=== PATIENT | male | born 1975 | race Caucasian/White ===

== ENCOUNTER 2017-12-23 09:34 | Emergency (ER) | payer OTHER ==
[2017-12-23] MEDS ORDERED: LIDOCAINE 1% INJ-PF (10 MG/ML) 30 ML SDV INJ ONE (10:14)
--- NOTE | 2017-12-23 10:20 | ER Document Report ---
ED Extremity Problem, Lower - General Chief Complaint: Laceration Stated Complaint: WORK RELATED/LEG INJURY Time Seen by Provider: 12/23/17 10:03 Mode of Arrival: Ambulatory Information source: Patient Notes: 42-year-old male presents to ED for complaint of laceration to the left leg. He states it happened at work. There is no bleeding at this time. He states he is unsure when he got his last tetanus shot. He is alert oriented pupils equal and react to light speaking in full even sentences able to walk with a even steady gait and respirations even and unlabored. TRAVEL OUTSIDE OF THE [place] IN LAST 30 DAYS: No - HPI Patient complains to provider of: Injury, Pain Location: Leg Occurred: Just prior to arrival Where: Work Onset/Duration: Sudden Quality of pain: Sharp Severity: Mild Pain Level: 1 Recent injury: Yes Associated symptoms: Painful ambulation Exacerbated by: Nothing Relieved by: Nothing - Related Data Allergies/Adverse Reactions: No Known Allergies Allergy (Verified 12/23/17 09:35) Past Medical History - General Information source: Patient - Social History Smoking Status: Never Smoker Cigarette use (# per day): No Chew tobacco use (# tins/day): No Smoking Education Provided: No Frequency of alcohol use: Rare Drug Abuse: None Occupation: [employer] Lives with: Family Family History: Arthritis, DM, Other - Bipolar and schizophrenia Patient has suicidal ideation: No Patient has homicidal ideation: No - Past Medical History Cardiac Medical History: Reports: None Pulmonary Medical History: Reports: None EENT Medical History: Reports: None Neurological Medical History: Reports: None Endocrine Medical History: Reports: None Renal/ Medical History: Reports: None Malignancy Medical History: Reports None GI Medical History: Reports: None Musculoskeltal Medical History: Reports Hx Musculoskeletal Deformity - At Skin Medical History: Reports None Psychiatric Medical History: Reports: None Traumatic Medical History: Reports: None Infectious Medical History: Reports: None Past Surgical History: Reports: Hx Orthopedic Surgery - right hip surgery - Immunizations Immunizations up to date: Yes Hx Diphtheria, Pertussis, Tetanus Vaccination: Yes - 12/23/2017 Review of Systems - Review of Systems Constitutional: No symptoms reported EENT: No symptoms reported Cardiovascular: No symptoms reported Respiratory: No symptoms reported Gastrointestinal: No symptoms reported Genitourinary: No symptoms reported Male Genitourinary: No symptoms reported Musculoskeletal: No symptoms reported Skin: Other - Laceration to left leg Hematologic/Lymphatic: No symptoms reported Neurological/Psychological: No symptoms reported -: Yes All other systems reviewed and negative Physical Exam - Vital signs Vitals: Temp Pulse Resp BP Pulse Ox 98.6 F 82 16 135/84 H 96 12/23/17 09:37 12/23/17 09:37 12/23/17 09:37 12/23/17 09:37 12/23/17 09:37 Interpretation: Normal - General General appearance: Appears well, Alert - HEENT Head: Normocephalic, Atraumatic Eyes: Normal Pupils: PERRL - Respiratory Respiratory status: No respiratory distress Chest status: Nontender Breath sounds: Normal Chest palpation: Normal - Cardiovascular Rhythm: Regular Heart sounds: Normal auscultation Murmur: No - Abdominal Inspection: Normal Distension: No distension Bowel sounds: Normal Tenderness: Nontender Organomegaly: No organomegaly - Back Back: Normal, Nontender - Extremities General upper extremity: Normal inspection, Nontender, Normal color, Normal ROM , Normal temperature General lower extremity: Normal inspection, Nontender, Normal color, Normal ROM , Normal temperature, Normal weight bearing. No: Brennen's sign - Neurological Neuro grossly intact: Yes Cognition: Normal Orientation: AAOx4 [place] Coma Scale Eye Opening: Spontaneous Link Coma Scale Verbal: Oriented [place] Coma Scale Motor: Obeys Commands Link Coma Scale Total: 15 Speech: Normal Motor strength normal: LUE, RUE, LLE, RLE Sensory: Normal - Psychological Associated symptoms: Normal affect, Normal mood - Skin Skin Temperature: Warm Skin Moisture: Dry Skin Color: Normal Skin irregularity: Laceration Location of irregularity: Extremities - Left leg Course - Vital Signs Vital signs: Temp Pulse Resp BP Pulse Ox 98.7 F 78 16 138/78 H 98 12/23/17 11:36 12/23/17 11:36 12/23/17 11:36 12/23/17 11:36 12/23/17 11:36 Procedures - Laceration/Wound Repair Left Groin Time completed: 11:21 Wound length (cm): 1.2 Wound's Depth, Shape: Superficial, Linear Laceration pre-procedure: Sterile PPE donned, Sterile drapes applied, Shur- Clens applied Anesthetic type: 1% Lidocaine Volume Anesthetic (mLs): 5 Wound explored: Contaminated Irrigated w/ Saline (mLs): 400 Wound Repaired With: Sutures Suture Size/Type: 4:0, Ethilon Number of Sutures: 3 Layer Closure?: No Post-procedure wound care: Sterile dressing applied Post-procedure NV exam normal: Yes Discharge - Discharge Clinical Impression: Laceration of left thigh Qualifiers: Encounter type: initial encounter Qualified Code(s): S71.112A - Laceration without foreign body, left thigh, initial encounter Condition: Stable Disposition: HOME, SELF-CARE Instructions: Family Physicians / Practices Additional Instructions: LACERATION CARE: Your laceration has been sutured to keep the skin edges aligned during healing. The time of suture removal depends on the nature and location of your cut. Please follow the care instructions the doctor has outlined for you and return for further care, according to the schedule you've been given. Keep the wound and dressing clean. Unless you were told otherwise, you may shower daily, blotting the wound dry with a clean, unused towel. At other times, If the dressing gets wet or blood soaked, remove it and blot the wound dry, then reapply a new dressing. Unless you were instructed otherwise, dressings should be changed at least daily. If any signs of infection occur (swelling, redness, drainage, increasing tenderness, red streaks, tender lumps in the armpit or groin above the laceration, or fever), see the doctor immediately. SOAP CLEANSING: Gently wash the wound daily using a mild soap (like Ivory, Phisoderm, Neutrogena). Use warm water, rubbing gently until all debris, ooze, and crusting have been washed from the wound. Allow to dry briefly (about 10 minutes) after cleaning. Repeat this cleansing at least three times a day for the first two days and then once or twice a day. ANTIBIOTIC OINTMENT PROTECTION: Your wounds are such that dressing them is not practical or optional. After cleansing, you should apply a thin coating of antibiotic ointment ( Bacitracin, not Neosporin) to the wounds at least three times daily. This lessens infection risk, and may decrease the amount of scarring. Use a q-tip or dull butter knife, not your finger, to apply this ointment. Any debris or ooze which builds up in the ointment should be gently rubbed off with a sterile gauze pad. Harder crusting may need to be gently scrubbed off with a clean wash cloth with soap and warm water, perhaps applying a warm, wet wash cloth to the wound for ten minutes first. Development of redness, severe itching, or blistering may mean allergy to the ointment. See the doctor. TETANUS IMMUNIZATION GIVEN: You have been given an immunization against tetanus. Please record this in your records. In general, a booster is needed only once every 10 years. The tetanus shot protects against tetanus or "lockjaw," which is a complication of certain wound infections (the tetanus shot cannot protect against the actual infection). The immunization site may become warm and red due to local reaction. If this occurs, apply warm compresses and take aspirin or ibuprofen to reduce inflammation and discomfort. Return for evaluation if the reaction becomes severe. FOLLOW-UP CARE: Please return in __3___ days for an infection check and dressing change. Your sutures should be removed in __9___ days. To facilitate a timely removal of your sutures, you may return to the Emergency Department at [facility]. You do not need to call for an appointment, but the best time to come in for suture removal is early in the morning. If you have been referred to another physician for follow-up care, call that physicians office for an appointment as you were instructed. If you experience a significant change in your laceration, or if you are concerned there may be an infection (swelling, redness, drainage, increasing tenderness, red streaks, tender lumps in the armpit or groin above the laceration, or fever) , return to the Emergency Department immediately re-evaluation. Forms: Elevated Blood Pressure, Return to Work
[2017-12-23] MEDS ORDERED: DIPH/PERTUSS(ACELL)/TETANUS VAC/PF 0.5 ML SYR (>=10YO) IM ONE (10:21)
[2017-12-23 18:12] VITALS: BP 138/78
== END 2017-12-23 11:38 | disposition home or self-care (01) ==
LOC: ER 09:34
PROC: 0HQJXZZ Repair Left Upper Leg Skin, External Approach (ICD-10-PCS; principal; 2017-12-23)
DX: S71.112A Laceration without foreign body, left thigh, initial encounter (principal); X58.XXXA Exposure to other specified factors, initial encounter; Y99.0 Civilian activity done for income or pay
CPT/HCPCS: 99282; 90471; 90715; 12001; J3490

== ENCOUNTER 2018-11-21 14:35 | Emergency (ER) | payer SELFPAY ==
--- NOTE | 2018-11-21 15:35 | ER Document Report ---
ED Medical Screen (RME) - General Chief Complaint: Facial Swelling Stated Complaint: FACE INJURY Time Seen by Provider: 11/21/18 15:33 Mode of Arrival: Ambulatory Information source: Patient Notes: 43-year-old male presented to ED with facial swelling to the right side of his face. He has no pain at all. noticed it yesterday at 1430 and it has increased in swelling today. There is no dental cavity no abscesses no source for the swelling that I can see. I will get lab work and have him reevaluated by 1 of the providers. I have greeted and performed a rapid initial assessment of this patient. A comprehensive ED assessment and evaluation of the patient, analysis of test results and completion of medical decision making process will be conducted by an additional ED providers. TRAVEL OUTSIDE OF THE [place] IN LAST 30 DAYS: No - Related Data Allergies/Adverse Reactions: No Known Allergies Allergy (Verified 11/21/18 14:40) Past Medical History Renal/ Medical History: Denies: Hx Peritoneal Dialysis Musculoskeltal Medical History: Reports Hx Musculoskeletal Deformity - At Past Surgical History: Reports: Hx Orthopedic Surgery - right hip surgery - Immunizations Immunizations up to date: Yes Hx Diphtheria, Pertussis, Tetanus Vaccination: Yes - 12/23/2017 Physical Exam - Vital signs Vitals: Temp Pulse Resp BP Pulse Ox 98.4 F 73 14 153/90 H 96 11/21/18 14:51 11/21/18 14:51 11/21/18 14:51 11/21/18 14:51 11/21/18 14:51 Course - Vital Signs Vital signs: Temp Pulse Resp BP Pulse Ox 98.4 F 73 14 153/90 H 96 11/21/18 14:51 11/21/18 14:51 11/21/18 14:51 11/21/18 14:51 11/21/18 14:51
[2018-11-21 16:25] LABS: ABSOLUTE BASOPHILS # (AUTO) 0.1 10^3/uL (0.0-0.2); ABSOLUTE EOSINOPHILS # (AUTO) 0.1 10^3/uL (0.0-0.6); ABSOLUTE LYMPHOCYTES (AUTO) 1.6 10^3/uL (0.5-4.7); ABSOLUTE MONOCYTES (AUTO) 0.6 10^3/uL (0.1-1.4); ABSOLUTE NEUT (AUTO) 7.8 10^3/uL (1.7-8.2); BASOPHILS % (AUTO) 0.5 % (0-2); EOSINOPHILS % (AUTO) 1.2 % (0-6); HEMOGLOBIN 14.6 g/dL (13.5-17.0); LYMPHOCYTES % (AUTO) 15.3 % (13-45); MEAN CORPUSCULAR HEMOGLOBIN 27.8 pg (27.0-33.4); MEAN CORPUSCULAR HGB CONC 33.9 g/dL (32.0-36.0); MEAN CORPUSCULAR VOLUME 82 fl (80-97); MONOCYTES % (AUTO) 6.2 % (3-13); PLATELET COUNT 217 10^3/uL (150-450); RED BLOOD COUNT 5.24 10^6/uL (4.35-5.55); SEGMENTED NEUTROPHILS % (AUTO) 76.8 % (42-78); TOTAL CELLS COUNTED % (AUTO) 100 %; WHITE BLOOD COUNT 10.2 10^3/uL (4.0-10.5)
[2018-11-21 16:46] LABS: ALANINE AMINOTRANSFERASE 25 U/L (21-72); ALBUMIN 4.6 g/dL (3.5-5.0); ALKALINE PHOSPHATASE 85 U/L (38-126); ANION GAP 7 (5-19); ASPARTATE AMINO TRANSFERASE 18 U/L (17-59); BILIRUBIN,DIRECT 0.2 mg/dL (0.0-0.4); BILIRUBIN,TOTAL 0.6 mg/dL (0.2-1.3); BLOOD UREA NITROGEN 17 mg/dL (7-20); C-REACTIVE PROTEIN 31.2 mg/L (<10.0); CALCIUM 10.5 mg/dL (8.4-10.2); CARBON DIOXIDE 29 mmol/L (22-30); CHLORIDE 102 mmol/L (98-107); GLUCOSE 91 mg/dL (75-110); POTASSIUM 4.7 mmol/L (3.6-5.0); SODIUM 138.3 mmol/L (137-145); TOTAL PROTEIN 7.7 g/dL (6.3-8.2)
[2018-11-21 17:10] LABS: ERYTHROCYTE SEDIMENTATION RATE 11 mm/hr (0-15)
--- NOTE | 2018-11-21 18:41 | ER Document Report ---
Addendum entered and electronically signed by JUAN ANTONIO ROJO NP 11/24/18 10:11: Course - Re-evaluation Re-evalutation: 11/24/18 10:11 [facility] pharmacy called to confirm prescription directions for the Percocet, advised to give 1 tablet every 6 as needed for pain. - Vital Signs Vital signs: Temp Pulse Resp BP Pulse Ox 98.5 F 76 20 145/76 H 98 11/21/18 22:43 11/21/18 22:43 11/21/18 22:43 11/21/18 22:43 11/21/18 22:43 - Laboratory Result Diagrams: 11/21/18 16:02 11/21/18 16:02 Laboratory results interpreted by me: 11/21/18 16:02 Calcium 10.5 H C-Reactive Protein 31.2 H Original Note: ED General - General Mode of Arrival: Ambulatory TRAVEL OUTSIDE OF THE [place] IN LAST 30 DAYS: No <GAYLA AJ - Last Filed: 11/21/18 18:21> <FELY HUYNH - Last Filed: 11/21/18 22:13> - General Chief Complaint: Facial Swelling Stated Complaint: FACE INJURY Time Seen by Provider: 11/21/18 15:33 Notes: 43-year-old male with no past medical history presents to the emergency department for right-sided facial swelling times 24 hours. His noted it last night after he got back from work and it got acutely worse today prompting them to get seen. His eye is swollen. He denies any vision changes. Denies headache or any pain at all. Denies any airway compromise, dysphagia, shortness of breath, chest pain. Denies any nausea or vomiting. Denies any neck stiffness. No other complaints. (GAYLA AJ) - Related Data Allergies/Adverse Reactions: No Known Allergies Allergy (Verified 11/21/18 14:40) Past Medical History - General Information source: Patient - Social History Smoking Status: Never Smoker Family History: Arthritis, DM, Other - Bipolar and schizophrenia Patient has suicidal ideation: No Patient has homicidal ideation: No Renal/ Medical History: Denies: Hx Peritoneal Dialysis Musculoskeletal Medical History: Reports Hx Musculoskeletal Deformity - At Past Surgical History: Reports: Hx Orthopedic Surgery - right hip surgery - Immunizations Immunizations up to date: Yes Hx Diphtheria, Pertussis, Tetanus Vaccination: Yes - 12/23/2017 <GAYLA AJ - Last Filed: 11/21/18 18:21> Review of Systems - Review of Systems Constitutional: See HPI EENT: See HPI Cardiovascular: See HPI Respiratory: See HPI Gastrointestinal: See HPI Genitourinary: No symptoms reported Male Genitourinary: No symptoms reported Musculoskeletal: No symptoms reported Skin: No symptoms reported Hematologic/Lymphatic: No symptoms reported Neurological/Psychological: No symptoms reported <GAYLA AJ - Last Filed: 11/21/18 18:21> Physical Exam <GAYLA AJ - Last Filed: 11/21/18 18:21> - Vital signs Vitals: Temp Pulse Resp BP Pulse Ox 98.4 F 73 14 153/90 H 96 11/21/18 14:51 11/21/18 14:51 11/21/18 14:51 11/21/18 14:51 11/21/18 14:51 - Notes Notes: PHYSICAL EXAMINATION: Reviewed vital signs and charting by RN GENERAL: Alert, interacts well. No acute distress. HEAD: Normocephalic, atraumatic. EYES: Pupils equal and round. Extraocular movements intact. ENT: Oral mucosa moist, tongue midline. NECK: Full range of motion. Supple. Trachea midline. LUNGS: Clear to auscultation bilaterally, no wheezes, rales, or rhonchi. No respiratory distress. HEART: Regular rate and rhythm. No murmur NEUROLOGIC: Oriented and appropriate. Normal speech. PSYCH: Normal affect, normal mood. SKIN: Prominent soft tissue swelling right side of patient's face infraorbital to jaw. Mild ecchymosis infraorbital. On inspection patient has poor dentition with purulence coming from both upper and lower teeth (GAYLA AJ) Course - Laboratory Result Diagrams: 11/21/18 16:02 11/21/18 16:02 <GAYLA AJ - Last Filed: 11/21/18 18:21> - Laboratory Result Diagrams: 11/21/18 16:02 11/21/18 16:02 <FELY HUYNH - Last Filed: 11/21/18 22:13> - Re-evaluation Re-evalutation: 11/21/18 18:42 Prominent facial swelling right side. CT facial ordered with contrast to ensure no facial cellulitis is present. (GAYLA AJ) 11/21/18 21:37 This Louie Huynh physician catering administrative assistant I took over patient care for daytime mid- level Pola and was told her we are waiting on a CT of the face for confirmation o f a possible abscess. Patient's CT returned does show a 9 mm abscess around the first permanent molar although does not appear to be an area where we can reach for an I&D. At this point we will send patient home on antibiotic close follow- up. Patient is in agreement with this plan. (FELY HUYNH) - Vital Signs Vital signs: Temp Pulse Resp BP Pulse Ox 98.4 F 73 14 153/90 H 96 11/21/18 14:51 11/21/18 14:51 11/21/18 14:51 11/21/18 14:51 11/21/18 14:51 - Laboratory Laboratory results interpreted by me: 11/21/18 16:02 Calcium 10.5 H C-Reactive Protein 31.2 H Discharge <GAYLA AJ - Last Filed: 11/21/18 18:21> <FELY HUYNH - Last Filed: 11/21/18 22:13> - Discharge Clinical Impression: Dental abscess Condition: Good Disposition: HOME, SELF-CARE Instructions: Abscess ([facility]), Cephalexin ([facility]), Oral Narcotic Medication ([facility]), Clindamycin ([facility]) Additional Instructions: Home today and rest. Medication as prescribed. Use warm moist compresses to the facial area 3-4 times a day. This is a wash rag as warm as you can stand up from the sink without having to use Tums to pick it up and put it on your face. Highly important that you monitors very closely if you should have increasing swelling increasing pain or difficult breathing or holding your own secretions you need to return to emergency room immediately. The abscess you have is very very small and most of the swelling is just a cellulitis which is a skin infection at this point. But again you need to monitor this closely and return here if you have any concerns. Prescriptions: Cephalexin Monohydrate [Keflex 500 mg Capsule] 500 mg PO Q6H 7 Days #28 cap Clindamycin HCl [Cleocin 300 mg Capsule] 300 mg PO QID #40 capsule Oxycodone HCl/Acetaminophen [Percocet 5-325 mg Tablet] 1 tab PO ASDIR PRN #15 tab PRN Reason: Forms: Elevated Blood Pressure, Smoking Cessation Education, Return to Work Referrals: [facility] [NO LOCAL MD] - Follow up as needed
[2018-11-21] MEDS ORDERED: CLINDAMYCIN 900 MG/D5W RTU 900 MG/50 ML RTUPB IV ONE (20:00)
--- NOTE | 2018-11-21 21:04 | RADIOLOGY REPORT (SQ) ---
EXAM DESCRIPTION: CT MAXILLOFACIAL WITH IV CONTRAST COMPLETED DATE/TME: 11/21/2018 18:41 CLINICAL HISTORY: 43 years Male R side facial swelling COMPARISON: None. TECHNIQUE: Contiguous axial images obtained through the maxillofacial region with IV contrast. Reformatted images obtained. This exam was performed according to our department optimization program which includes automated exposure control, adjustment of the mA and/or kv according to patient size and/or use of iterative reconstruction technique. FINDINGS: The post septal orbits appear unremarkable. There is mucosal thickening in paranasal sinuses. No air-fluid levels are noted. Middle ears and mastoid air cells appear clear. There is dental disease with lucency surrounding the root of the right maxillary second molar with some cortical destruction. Lucency also surrounds the root of the maxillary first premolar. There is a small adjacent fluid collection measuring 9 x 6 mm suggesting small abscess. There is stranding in the adjacent soft tissues consistent with associated cellulitis. There is fatty replacement of the parotid glands. The submandibular glands appear within normal limits. Thyroid, epiglottis and vocal cords are unremarkable. Scattered lymphadenopathy is noted. IMPRESSION: Dental disease with lucency surrounding the apex of the right maxillary first premolar and associated cortical destruction with a 9 mm abscess and associated cellulitis
[2018-11-21] MEDS ORDERED: OXYCODONE-ACETAMINOPHEN 5-325 MG TABLET PO ONE (22:13)
[2018-11-21] MEDS ORDERED: DEXAMETHASONE SOD PHOS INJ 10 MG/1 ML VIAL IV ONE (22:21)
[2018-11-21 22:44] VITALS: BP 145/76
== END 2018-11-21 22:27 | disposition home or self-care (01) ==
LOC: ER 14:35
DX: K04.7 Periapical abscess without sinus (principal); R22.0 Localized swelling, mass and lump, head
CPT/HCPCS: 99284; 96375; 96365; 96366; 36415; 85025; 85652; 86140; 80053; 70487; J1100